=== PATIENT | female | born 1990 | race Caucasian/White ===

== ENCOUNTER → 2019-04-17 13:57 | Outpatient (BNVA) | payer MEDICAID, SELFPAY | PROVIDERS: Family Provider Family Medicine; Visit Provider Nurse Practitioner | DX: R05 Cough (principal) | CPT/HCPCS: 87804 ==

== ENCOUNTER 2021-10-24 20:10 | Emergency (ER) | payer BC, MEDICAID, SELFPAY ==
[2021-10-24 20:13] VITALS: BP 113/79; PULSE 114; RESP 18; TEMP 36.6; O2SAT 100; BMI 25.7
[2021-10-24] MEDS: EPINEPHrine 1 mg/mL INJ 0.3 MG IM (20:38)
[2021-10-24] MEDS: diphenhydrAMINE 50 mg/mL SDV 1mL IVP (20:40)
[2021-10-24] MEDS: famotidine 20 mg/2 mL INJ 40 MG IVP (20:46)
--- NOTE | 2021-10-24 21:24 | W.ED.GENADLT ---
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 She was stung 3 times by yellow jackets earlier in the evening, sometime a little after 7. She presents with coalescing hives, itchiness, mild shortness of breath, and swelling around her neck. She was a young girl the last time this happened, so she does not know how she was treated prior. Onset (ago): minute(s) Location: neck, chest, abdomen and lower extremity Quality: burning and other Associated symptoms: Reports nausea, rash and other (throat tightening); Deny chest pain, confusion, cough, dyspnea, fevers/chills, headache(s), vomiting or weakness Review of Systems Const: Denies: fever(s) Eyes: Denies: change in vision ENMT: Denies: hoarseness or swelling of lips/tongue Card: Denies: chest pain Resp: Denies: dyspnea GI: Reports: nausea; Denies: vomiting Skin/Breast: Reports: rash Neuro: Denies: headache(s) or confusion PFSH ED PFSH: Family History Grandfather Cancer Social History Smoking and tobacco status: current every day smoker (vape) e-cigarettes E-Cigarette Details: vaporizer device and with nicotine Second hand smoke exposure: Yes Alcohol intake: current Alcohol intake frequency: holidays/special occasions only Desire information about alcohol rehabilitation?: No Desire information about substance/drug rehabilitation?: No Female Reproductive History: Date of last menstrual period: 08/18/21 Physical Exam Const: GENERAL APPEARANCE: cooperative, anxious and ill appearing (mildly); not frail appearing HENMT: COMMON NORMALS: normocephalic, atraumatic and Normal external nose present HEAD & SCALP: normocephalic and atraumatic FACE & SINUS: normal facial exam and face symmetric; no edema NOSE: Normal external nose present and Normal nares present MOUTH: Normal oral and palatal mucosa present, lip normal and tongue normal THROAT: posterior oropharynx normal Eye: COMMON NORMALS: Equal, round and reactive pupils present and EOMs intact bilaterally PUPIL: Yes Equal, round and reactive pupils present Neck/C-Spine: GENERAL: Yes trachea midline and Yes other (mild sts of neck. significant erythema with urticaria present) Chest: CHEST: Yes Symmetrical chest wall rise Resp: COMMON NORMALS: normal respiratory effort, No use of accessory muscles and clear to auscultation bilaterally AUSCULTATION: clear to auscultation bilaterally Cardio: COMMON NORMALS: regular rate and regular rhythm RATE: regular rate RHYTHM: regular rhythm GI: COMMON NORMALS: Normal to inspection, nondistended, normoactive bowel sounds present, Soft to palpation and non-tender PALPATION: Yes Soft to palpation Extremity: COMMON NORMALS: no pedal edema Neuro: CHRISTIAN COMA SCALE: document GCS findings [place] coma scale eye opening: Spontaneous [place] coma scale verbal response: Orientated [place] coma scale motor response: Obey commands Christian coma scale total score: 15 Skin: NARRATIVE SKIN EXAM: insect stings to LE bilaterally. coalescing urticaria diffusely. Course Vital Signs: Vital signs: Vital Signs Temperature 97.8 F 10/24/21 20:13 Pulse Rate 104 H 10/24/21 22:36 Respiratory Rate 15 10/24/21 22:36 Blood Pressure 119/82 10/24/21 22:36 Pulse Oximetry 100 10/24/21 22:36 Oxygen Delivery Me thod 10/24/21 20:13 [facility] - General Adult Medical Decision Making Patient is much improved. She was given epinephrine IM, as well as Solu-Medrol, Benadryl, and Pepcid. She has been observed for a couple of hours. She will be allowed home. Discharge Plan Discharge Patient Disposition: Home Clinical Impression: Allergic reaction to insect sting Condition: Stable Prescriptions: New EpiPen 0.3 mg/0.3 mL auto-injector 0.3 mg IM Q10M PRN (Reason: hypersensitivity reaction) Qty: 2 0RF Rx Instructions: for 2 doses Benadryl 25 mg capsule 25 mg PO Q4H PRN (Reason: allergy symptoms) Qty: 30 0RF Continued Medrol (Khari) 4 mg tablets,dose pack See Rx Instructions PO PER PKG DIR 6 Days Qty: 21 0RF Rx Instructions: PO PER PKG DIR No Action fexofenadine [Che Allergy] 180 mg tablet 180 mg PO Q24H Rx Instructions: 1 tablet daily etonogestrel 68 mg implant 1 implant SUBDERMAL ONCE Discharge Orders: Discharge ED (Routine); Ordered 10/24/21 Ordered By: Frederick Gallegos Patient Instructions: Allergic Reaction, Insect Bite or Sting (ED) Activity Restrictions/Additional Instructions: Medications as directed. Take the methylprednisolone as directed. Take the Benadryl 25 mg every 6 hours for the next 24 hours, then as needed. Carry the EpiPen with you in case you are stung again. If you feel you must use the EpiPen, you must come in for evaluation following its use. Coding Level of Care Code ED Insurance Office Manager for Efra[facility] [place]
[2021-10-24 21:32] VITALS: BP 121/95; PULSE 93; RESP 18; O2SAT 97
[2021-10-24] MEDS: ketorolac 30 mg/mL INJ 15 MG IVP (22:26)
[2021-10-24 22:27] VITALS: RESP 16
[2021-10-24] MEDS: morphine 4 mg/mL SDV 1 mL IVP (22:27)
[2021-10-24 22:36] VITALS: BP 119/82; PULSE 104; RESP 15; O2SAT 100
== END 2021-10-24 22:30 | disposition home or self-care (01) ==
PROVIDERS: Emergency Provider Emergency Medicine
DX: T63.461A Toxic effect of venom of wasps, accidental (unintentional), initial encounter (principal); F17.290 Nicotine dependence, other tobacco product, uncomplicated
CPT/HCPCS: 96372; 96374; 96375; 99284; J0171; J1200; J1885; J2270; J2930; J3490